=== PATIENT | female | born 1995 | race Caucasian/White ===

== ENCOUNTER → 2019-01-21 | Outpatient (CLI) | payer OTHER ==
[~2019-01-21] MED LIST: ACET-683 PO; IBUP80TA PO; PRENCHW PO; PRENTAB9 PO
--- NOTE | 2019-01-22 09:33 | REP ---
Left ankle series: Four views. History: Ankle injury. Findings: Four views of the left ankle demonstrate an intact ankle mortise. There is mild to moderate lateral swelling. No fracture is seen. There is an accessory ossicle adjacent to the lateral surface of the talus. This is well corticated and appears old. Impression: Lateral swelling at the ankle. No acute fracture. Electronically Signed by Robert Cruz MD 01/22/2019 07:29 P
== END ==
LOC: M RAD 21:08
PROVIDERS: ATTEND Physician Assistant Medical
DX: M25.472 Effusion, left ankle (principal); S99.912A Unspecified injury of left ankle, initial encounter; W19.XXXA Unspecified fall, initial encounter; Y92.9 Unspecified place or not applicable

== ENCOUNTER 2019-03-17 17:57 | Outpatient (CLI) | payer OTHER ==
[~2019-03-17] VITALS: Ht 172.7 cm; Wt 90.9 kg
[2019-03-17 18:11] VITALS: BP 120/76
[2019-03-17] MEDS ORDERED: PRENTAB9 PO (18:15)
[2019-03-17 20:26] VITALS: BP 137/87
--- NOTE | 2019-03-17 20:45 | IPNPDOC ---
Text Note Date of Service The patient was seen on 03/17/19. NOTE 23 yo at 40+4 weeks gestation presented to L&D with the complaint of decreased movement. She felt movement today, just not as much as usual. She denies any other concerns such as vaginal bleeding, leakage of fluid, or contractions. is uncomplicated. Chaperoned by L&D RN Vitals - VSS, afebrile, normotensive, non tachycardic General - AAOX3, sitting up in bed, NAD Abdomen - Gravid uterus, no fundal tenderess Cervix - 50/-3, membrane stripping performed per patient request. FHR tracing - NST reactive with multiple accels and no decels. Bedside TAUS ( anatomy not assessed) - Viable SIUP in cephalic presentation. JULIUS 8.2cm. BPP 8/8. status reassuring on monitoring with reactive NST and BPP 8/8. Ms. Wolfe felt significant movement while in triage and was reassured. Nevertheless, I did offer her IOL this evening given her presenting complaint. She is scheduled for IOL this Monday at 41 weeks. However, Ms. Wolfe strongly desires to go into labor naturally and have a natural delivery. We discussed all risks and benefits of IOL now vs waiting for another few days to potentially allow for spontaneous labor. This is what Ms. Wolfe preferred, and she declined IOL this evening. I did perform membrane stripping per her request. And I also set her up for an NST in the office tomorrow morning at 0800, per her request as well. She knows to return to care sooner for bleeding, contractions, leakage of fluid, decreased movement, or any other urgent concerns. All patient questions answered. DO LORI Perez,Smith, I+O VS, Smith, I+O Vital Signs Date Time Temp Pulse Resp B/P (MAP) Pulse Ox O2 Delivery O2 Flow Rate FiO2 03/17/19 18:11 99.5 95 18 120/76 (91) SAL ELIAS DO Mar 17, 2019 20:44
== END 2019-03-17 20:35 | disposition home or self-care (01) ==
LOC: M LDO 17:57 → M LDI 18:29 → UNDOADMIN 18:29 → M LDO 20:35 → UNDODISIN 20:35
PROVIDERS: ATTEND Obstetrics & Gynecology
DX: O36.8130 Decreased fetal movements, third trimester, not applicable or unspecified (principal); O48.0 Post-term pregnancy; Z3A.40 40 weeks gestation of pregnancy
CPT/HCPCS: 59025; 76815; G0378; G0463

== ENCOUNTER 2019-03-18 23:29 | Outpatient (CLI) | payer OTHER ==
[~2019-03-18] VITALS: Ht 172.7 cm; Wt 91.4 kg
[~2019-03-18 23:29] MED LIST changes: -ACET-683 PO; -IBUP80TA PO; -PRENCHW PO
--- NOTE | 2019-03-19 00:38 | IPNPDOC ---
Text Note Date of Service The patient was seen on 03/19/19. NOTE patient is a 23 yo G1 @ 40+5wks gestation presents to L&D with concern for having bloody discharge. she reports mild contractions. denies LOF. +FM. vitals: normal NAD abd: gravid, soft, nt FHT: 115/mod james/pos accel/no decel toco: ctx q 4mins ce: 3/75/-1, membrane sweep, no blood noted on exam. a/p patient is @ 40+5wks, in latent labor. Discussed option of admission for IOL vs . recheck when she has more uncomfortable contractions in 2hrs. patient opted to go home and come back when she has stronger contractions. discussed return precautions. DO BEVERLEY Man LUAT N. DO Mar 19, 2019 00:38
== END 2019-03-19 00:45 | disposition home or self-care (01) ==
LOC: M LDO 23:29
PROVIDERS: ATTEND Obstetrics & Gynecology
DX: O47.1 False labor at or after 37 completed weeks of gestation (principal); Z3A.40 40 weeks gestation of pregnancy
CPT/HCPCS: 59025; G0378; G0463

== ENCOUNTER 2019-03-20 12:19 | Inpatient (IN) | payer OTHER ==
[~2019-03-20] VITALS: Ht 172.7 cm; Wt 81.0 kg
[2019-03-20] VITALS (18 sets, daily range): BP systolic 113–148; BP diastolic 58–92
[2019-03-20] MEDS ORDERED: LACTATED RINGER'S 1000 ML IV STA (13:47)
[2019-03-20] MEDS ORDERED: miSOPROStol 50 MCG 1/2 TAB (S0191) PO ONE (14:00)
--- NOTE | 2019-03-20 14:15 | HPEPDOC ---
Obstetrical History & Physical General Date of Admission Mar 20, 2019 at 12:19 History of Present Illness 23yo at 41wks, EDC of 13MAR2019 by LMP and 1st Trimester US, presents to LND for post-dates induction of labor. Pt reports +FM and irregular contractions, some bloody show; denies LOF. Ms. Wolfe is A Positive, GBS negative. Her is complicated by excessive weight gain of 46lbs. She has no significant medical history; surgical history of wisdom teeth extraction. Chief Complaint: Induction of labor Information Provided By: Patient Care Care: Good Care Number of Visits: 10 Dating Final EDC: Mar 13, 2019 Final EDC for Daily Update: Mar 13, 2019 Final EDC by: LMP, 1st trimester (US) LMP: Jun 06, 2018 Antepartum Course Diagnos(e)s Post dates ; excessive weight gain. Height (inches): 68 Pre- weight (lbs.): 150 Admission Weight (lbs.): 196 Change in Weight (lbs.): 46 Past Medical History Past Obstetrical History : Past Obstetrical History: [employer] History: No pertinent history Past Medical History Medical History Denies Surgical History: [place] teeth Family History Significant Family History: No pertinent family hx Social History Marital Status: Family situation: Spouse/partner home Psychosocial History: No pertinent psych hx * Smoker: non-smoker Alcohol: Denies Imunizations Tdap status: current Allergies Coded Allergies: lactose (Verified Allergy, Unknown, 03/17/19) Medications Scheduled No.137/Iron/Folic Acd ( Vitamin Tablet) 1 Each Tablet, 1 TAB PO DAILY Physical Examination Physical Examination GENERAL: Alert and oriented times three. BREAST: . ABDOMEN: Gravid and non-tender to touch. FETUS: Is vertex by sterile vaginal examination; EFW 3400g. HEART RATE: Regular rate. LUNGS: Nonlabored breathing. EXTREMITIES: No edema visible. Other physical findings VE at 1340, chaperoned by RN James: 3/75/-2, soft, BBOW, membranes swept FHR 125, moderate variability, + accels, no decels noted CTX: irregular Laboratory Data 24H LABS Laboratory Tests 2 03/20/19 12:30: Serology Scanned Report Hepatitis B Testing Pertinent Laboratoy Data Blood Type: A+ RBC Antibody Screen: Negative HIV: Negative Hepatitis B: Positive Rapid Plasma Reagin: Nonreactive Rubella: Immune Varicella: Immune Chlamydia/Gonorrhea: Negative Group B Streptococcus: Negative Quad Screen Test: Negative Anatomy Ultrasound Ultrasound Date: October 24, 2018 Placenta Location: Posterior Normal Anatomy: Yes (spine evaluation is incomplete with nonvisualiation of the sacral spine seconary to position) Placenta Previa: No Other Ultrasounds Repeat US on [id number]: Placenta anterior and right lateral in position; no previa; spine evaluation WNL. Steroid Therapy Steroid Therapy: No Assessment/Plan Assessment Ms. Wolfe is 23yo at 41wks who is admitted for post dates induction of labor. GBS Negative, A Positive blood type; Category I FHT Plan Admit to LND, consented for induction, labor, and delivery. IV start, Admission labs collected IV and PO hydration Plan to start IOL with buccal cytotec CEFM x2 per protocol Can walk after 1 hour of monitoring Reassess in 4 hours or sooner PRN Anticipate Consult with OB if indicated ELENA BENNETT CNM Mar 20, 2019 14:15
[2019-03-20 14:24] LABS: HEMATOCRIT 38.3 % (36.0-47.0); HEMOGLOBIN 13.1 g/dl (12.0-15.5); MEAN CORPUSCULAR HEMOGLOBIN 30.9 pg (27.0-33.0); MEAN CORPUSCULAR HGB CONC 34.2 g/dl (32.0-36.5); MEAN CORPUSCULAR VOLUME 90.3 fl (80.0-96.0); PLATELET COUNT, AUTOMATED 212 10^3/uL (150-450); RED BLOOD COUNT 4.24 10^6/uL (4.00-5.40); WHITE BLOOD COUNT 10.9 10^3/uL (4.0-10.0)
[2019-03-20] MEDS ORDERED: LR 1,000 ML IV SCH (17:55)
[2019-03-20] MEDS ORDERED: OXYTOCIN DRIP 30 UNITS in IV 1 EA IV SCH (18:00)
--- NOTE | 2019-03-20 18:00 | IPNPDOC ---
Obstetrical Progress Note Date of Service Mar 20, 2019 Subjective 23yo at 41wk undergoing IOL for post dates. Pt now s/p cytotec #1 and feeling contractions, reporting them becoming more painful. Objective O: VSS FHR 125, moderate variability, + Accels, no decels CTX q 2-5 minutes VE Deferred at this time Vital Signs Date Time Temp Pulse Resp B/P (MAP) Pulse Ox O2 Delivery O2 Flow Rate FiO2 03/20/19 17:22 98.1 88 18 115/66 (82) Assessment and Plan Status: Reassuring Group B Streptococcus: Negative Anticipate: Vaginal Delivery Additional Comments A: PDIOL, entering into labor, Category I FHT P: Pt may eat and shower Start pitocin per low dose protocol two hours after she eats Can have epidural when ready CEFM x2 PO and IV hydration Anticipate Consult with OB as indicated ELENA BENNETT CNM Mar 20, 2019 18:00
[2019-03-20] MEDS ORDERED: FENTANYL 2MCG/ML ROPIVACAINE 0.2% IN 0.9% NACL 100ML IVBAG As Ordered ONE (22:26)
[2019-03-20] MEDS ORDERED: FENTANYL/ROPIVACAINE/NACL BAG 100 ML EPIDURAL SCH (23:45)
[2019-03-20] MEDS ORDERED: EPIDURAL COMMENT XX SCH (23:45)
[2019-03-20] MEDS ORDERED: ePHEDrine SULFATE 25 MG/5 ML(5MG/ML) SYRINGE IV PRN (23:45)
[2019-03-20] MEDS ORDERED: REFRIGERATOR IV KEYS XX PRN (23:45)
[2019-03-20] MEDS ORDERED: ONDANSETRON 4MG/2ML VIAL (J2405) IV PRN (23:45)
[2019-03-20] MEDS ORDERED: diphenhydrAMINE INJ 50MG/ML VIAL (J1200) IV PRN (23:45)
[2019-03-20] MEDS ORDERED: EPIDURAL/PCA KEYS XX PRN (23:45)
[2019-03-20] MEDS ORDERED: NALOXONE INJ 0.4 MG/1 ML VIAL (J2310) IV PRN (23:45)
[2019-03-21] VITALS (9 sets, daily range): BP systolic 103–142; BP diastolic 58–87
[2019-03-21] MEDS ORDERED: DIBUCAINE 1% OINTMENT 30GM TOP PRN (04:15)
[2019-03-21] MEDS ORDERED: IBUPROFEN 600 MG TAB PO PRN (04:15)
[2019-03-21] MEDS ORDERED: DOCUSATE SODIUM 100 MG CAP PO PRN (04:15)
[2019-03-21] MEDS ORDERED: ACETAMINOPHEN TAB 650MG DOSE (2X325MG) PO PRN (04:15)
[2019-03-21] MEDS ORDERED: MEASLES,MUMPS,RUBELLA VACCINE INJ (MMR-II) (90707) SC SCH (04:15)
[2019-03-21] MEDS ORDERED: METHYLERGONOVINE MALEATE 0.2 MG TAB PO PRN (04:15)
[2019-03-21] MEDS ORDERED: ACETAMINOPHEN 500 MG TAB PO PRN (04:15)
[2019-03-21] MEDS ORDERED: OXYTOCIN INJ 10 UNITS/ML VIAL (J2590) IV ONE (04:15)
[2019-03-21] MEDS ORDERED: RHOGAM 300 MCG (1500 IU) INJ (J2790) IM SCH (04:15)
[2019-03-21] MEDS ORDERED: OXYTOCIN DRIP 30 UNITS in IV 1 EA IV ONE (04:15)
[2019-03-21] MEDS ORDERED: MOM 30ML SUSPENSION UDC PO PRN (04:15)
[2019-03-21 04:19] LABS: CORD GAS ABE V -6.6; CORD GAS HCO3 V 17.7 MEQ/L; CORD GAS O2 SAT V 71.8 %; CORD GAS PCO2 V 32.5 mmHg; CORD GAS PH V 7.353 UNITS; CORD GAS PO2 V 31.7 mmHg; CORD GAS SBC V 18.6 MEQ/L; CORD GAS TCO2 V 18.7 MEQ/L
[2019-03-21 04:20] LABS: CORD GAS ABE A -5.1; CORD GAS HCO3 A 22.6 MEQ/L; CORD GAS O2 SAT A 31.7 %; CORD GAS PCO2 A 52.1 mmHg; CORD GAS PH A 7.256 UNITS; CORD GAS PO2 A 17.3 mmHg; CORD GAS SBC A 18.7 MEQ/L; CORD GAS TCO2 A 24.2 MEQ/L
--- NOTE | 2019-03-21 07:08 | IPN ---
DATE: 03/20/2019 This lady is a 23-year-old 1, para 0 at 41 weeks of gestation admitted for induction of labor. Her care was uneventful. She does not have any significant issues in her history. She is Group B Streptococcus (GBS) negative and was started buccal Cytotec followed up by Pitocin. On evaluation pre epidural, she was found to be 4 cm, bulging membranes, -3 station. Contractions were moderate. Category 1 strip and the Pitocin had been started 2 hours ago. The patient is requesting an epidural, safe to proceed.
--- NOTE | 2019-03-21 07:10 | IPN ---
DATE: 03/21/2019 This lady has an epidural in place. Has category 1 strip. On 4 milliunits of Pitocin still on examination is 4 cm, anterior, bulging membranes, 75% effaced -3 station. Our plan was to do an ARM, which was done, draining clear liqua, vertex OT to the right. Category 1 strip. Blood pressures are stabilizing 123/74, respirations 16, pulse 77, temperature 98.2. Our plan is to increase Pitocin to maximize her contractions and anticipate vaginal delivery. Safe to proceed.
[2019-03-21] MEDS: PRENATAL VITAMINS CHEWABLE TABLET PO SCH (07:55)
--- NOTE | 2019-03-21 11:38 | DN ---
DATE: 03/21/2019 This lady is a 23 old 1 now para 1 who was admitted for induction of labor at 41 weeks gestation. She had an epidural in place. Had a spontaneous vaginal delivery of female infant 8 pounds 11 ounces 3950 grams of 9 and 9 at one and five minutes respectively. Arterial and venous pH were performed. The arterial pH was 7.25, base excess -5.1, venous pH 7.35, base excess -6.6. We also did cord blood bank banking for the patient and filled out the appropriate indicated forms. She had a spontaneous midline vaginal tear. Perineum was intact. We repaired the spontaneous midline vaginal tear with #2-0 Vicryl on J339. The anterior and posterior lateral welch were intact. Sphincter was tight. Uterus contracted well down on Pitocin. The patient and baby tolerating procedure well.
[2019-03-21] MEDS: IBUPROFEN 800 MG TAB PO PRN (16:45)
[2019-03-22] MEDS: IBUPROFEN 800 MG TAB PO PRN ×2 (02:10→17:39)
[2019-03-22 06:00] VITALS: BP 112/70
--- NOTE | 2019-03-22 06:19 | IPNPDOC ---
Text Note Date of Service The patient was seen on 03/22/19. NOTE patient is a 23 you S/P ppd #1. Today without concerns. She did have increased vaginal bleeding, resolved with fundal massage and one dose of methergine PO. report lochia like a period. she is ambulating, urinating, tolerating po without problem. She is breast feeding. plans on using natural family planning for control. vitals: normal nad abd: soft, nt, fundus @ u-2 le: no edema/tenderness a/p ppd #1, doing well. contraceptive counseling. discharge planning. medication placed at ft. drum for pickup. anticipate d/c when baby discharge. Le, DO VS,Smith, I+O VS, Fishbone, I+O Vital Signs Date Time Temp Pulse Resp B/P (MAP) Pulse Ox O2 Delivery O2 Flow Rate FiO2 03/22/19 06:00 97.7 68 20 112/70 (84) 98 I&O- Last 24 Hours up to 6 AM 03/22/19 06:00 Output Total 400 ml Balance -400 ml DHEERAJ LOWERY DO Mar 22, 2019 06:19
[2019-03-22 07:34] LABS: MEAN CORPUSCULAR HEMOGLOBIN 30.6 pg (27.0-33.0); MEAN CORPUSCULAR HGB CONC 33.4 g/dl (32.0-36.5); MEAN CORPUSCULAR VOLUME 91.4 fl (80.0-96.0); PLATELET COUNT, AUTOMATED 184 10^3/uL (150-450)
[2019-03-22 07:41] LABS: HEMOGLOBIN 10.7 g/dl (12.0-15.5)
[2019-03-22] MEDS: PRENATAL VITAMINS CHEWABLE TABLET PO SCH (08:39)
[2019-03-22 17:57] VITALS: BP 130/85
[2019-03-23 05:28] VITALS: BP 115/70
[2019-03-23] MEDS: PRENATAL VITAMINS CHEWABLE TABLET PO SCH (07:58)
--- NOTE | 2019-03-23 10:44 | IPNPDOC ---
Text Note Date of Service The patient was seen on 03/23/19. NOTE Ob Considerations: Excessive Wt gain 23y/o G1 PPD#2 s/p at 41+1 wks following induction for pending post dates. Today, patient is doing well and without complaints. She is voiding and ambulating without difficulty, tolerating regular diet and lochia is diminishing. She is breast feeding without difficulty. She desires natural family planning for contraception. PE: VS reviewed. No mild range BPs in last 24 hours. Non tachycardic, normotensive Gen: alert and oriented, no acute distress Resp: Non labored breathing CV: Well perfused Abd: Soft, NT, ND. U-2 Ext: No edema, erythema or calf tenderness A/p: 23y/o G1 PPD#2 s/p @ 41+1 wks, recovering well -Encourage ambulation, hydration, breast feeding -Apos, rubella immune -Motrin and Tyenol for pain control -Contraception: Desires natural family planning, counseled on risks of close interval -Anticipate discharge today -F/u visit at 6 weeks VS,Smith, I+O VS, Smith, I+O Vital Signs Date Time Temp Pulse Resp B/P (MAP) Pulse Ox O2 Delivery O2 Flow Rate FiO2 03/23/19 05:28 99.2 68 16 115/70 (85) 03/22/19 06:00 98 Nadine Champion MD Mar 23, 2019 10:44
--- NOTE | 2019-03-23 10:55 | OBDS ---
[facility] Obstetrical Discharge Sum. 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 Wolfe was admitted for induction of labor at 41+0 wks for pending post dates on 21Mar2019. Delivery Uncomplicated @ 41+1 wks of 8by51pr 3950g female infant, Apgars 9/9. Midline vaginal laceration. Sex: Female Anesthesia: Regional Anesthesia Episiotomy None A/P, Post Course List any complications Admission diagnosis: Pending Post Dates Discharge diagnosis: Live martinez Condition at Discharge: Stable Discharge Instructions: Home Activity: As tolerated. Pelvic rest x6 weeks. Diet: Regular Medications: Given to patient Follow-up: 6 week visit Other: Nadine Champion MD Mar 23, 2019 10:55
[2019-03-23] MEDS ORDERED: PRENCHW PO (10:57)
[2019-03-23] MEDS ORDERED: IBUP80TA PO (10:57)
[2019-03-23] MEDS ORDERED: ACET-683 PO (10:57)
== END 2019-03-23 14:22 | disposition home or self-care (01) | DRG 807 ==
LOC: M LDI 12:19 → M OBS 03-21 06:37
PROVIDERS: ADMIT Registered Nurse Maternal Newborn; ATTEND Obstetrics & Gynecology
PROC: 3E0P7GC Introduction of Other Therapeutic Substance into Female Reproductive, Via Natural or Artificial Opening (ICD-10-PCS; 2019-03-20)
PROC: 10E0XZZ Delivery of Products of Conception, External Approach (ICD-10-PCS; principal; 2019-03-21)
PROC: 10907ZC Drainage of Amniotic Fluid, Therapeutic from Products of Conception, Via Natural or Artificial Opening (ICD-10-PCS; 2019-03-21)
PROC: 0HQ9XZZ Repair Perineum Skin, External Approach (ICD-10-PCS; 2019-03-21)
DX: O48.0 Post-term pregnancy (principal); Z37.0 Single live birth; Z3A.41 41 weeks gestation of pregnancy; O70.0 First degree perineal laceration during delivery

== ENCOUNTER 2020-02-19 21:13 | Emergency (ER) | payer OTHER ==
[~2020-02-19] VITALS: Ht 175.3 cm; Wt 77.8 kg
[~2020-02-19 21:13] MED LIST changes: +ACET-683 PO; +IBUP80TA PO; +PRENCHW PO
[2020-02-19] MEDS ORDERED: MULTCAP PO (21:20)
[2020-02-19 23:15] LABS: BASO % 0.5 % (0.0-1.0); EOS # 0.1 10^3/uL (0.0-0.5); EOS % 1.5 % (0.0-3.0); HEMATOCRIT 41.9 % (36.0-47.0); HEMOGLOBIN 14.1 g/dl (12.0-15.5); LYMPH # 1.5 10^3/uL (1.5-5.0); LYMPH % 22.9 % (24.0-44.0); MEAN CORPUSCULAR HEMOGLOBIN 29.7 pg (27.0-33.0); MEAN CORPUSCULAR HGB CONC 33.7 g/dl (32.0-36.5); MEAN CORPUSCULAR VOLUME 88.2 fl (80.0-96.0); MONO # 0.6 10^3/uL (0.0-0.8); MONO % 8.5 % (0.0-5.0); NEUTROPHILS # 4.3 10^3/uL (1.5-8.5); NEUTROPHILS % 66.4 % (36.0-66.0); PLATELET COUNT, AUTOMATED 236 10^3/uL (150-450); RED BLOOD COUNT 4.75 10^6/uL (4.00-5.40); WHITE BLOOD COUNT 6.5 10^3/uL (4.0-10.0)
[2020-02-19] MEDS ORDERED: ONDANSETRON 4MG/2ML VIAL IV ONE (23:30)
[2020-02-19] MEDS ORDERED: NS 1,000 ML IV ONE (23:30)
[2020-02-19] MEDS ORDERED: ISOVUE-370 76% 100ML VIAL As Ordered ONE (23:33)
[2020-02-19 23:49] LABS: ALBUMIN 3.5 GM/DL (3.2-5.2); ALT/SGPT 18 U/L (12-78); BILIRUBIN,DIRECT < 0.1 MG/DL (0.0-0.2); BILIRUBIN,TOTAL 0.3 MG/DL (0.2-1.0); BLOOD UREA NITROGEN 9 MG/DL (7-18); CALCIUM LEVEL 8.5 MG/DL (8.5-10.1); CARBON DIOXIDE LEVEL 27 MEQ/L (21-32); CHLORIDE LEVEL 108 MEQ/L (98-107); CREATININE FOR GFR 0.62 MG/DL (0.55-1.30); GLOMERULAR FILTRATION RATE > 60.0 (>60); GLUCOSE, FASTING 86 MG/DL (70-100); LIPASE 98 U/L (73-393); POTASSIUM SERUM 3.9 MEQ/L (3.5-5.1); SODIUM LEVEL 140 MEQ/L (136-145)
--- NOTE | 2020-02-20 00:32 | REPVR ---
PROCEDURE INFORMATION: Exam: CT Abdomen And Pelvis With Contrast Exam date and time: 02/19/2020 11:29 PM Age: 24 years old Clinical indication: Abdominal pain; Epigastric; Additional info: Epigastric pain TECHNIQUE: Imaging protocol: Computed tomography of the abdomen and pelvis with intravenous contrast. Axial, coronal and sagittal reformatted images were created and reviewed. Radiation optimization: All CT scans at this facility use at least one of these dose optimization techniques: automated exposure control; mA and/or kV adjustment per patient size (includes targeted exams where dose is matched to clinical indication); or iterative reconstruction. Contrast material: ISO; Contrast volume: 100 ml; Contrast route: INTRAVENOUS (IV); COMPARISON: No relevant prior studies available. FINDINGS: Liver: Unremarkable. Gallbladder and bile ducts: No radiodense gallstones. No biliary ductal dilatation. Pancreas: Unremarkable. Spleen: Unremarkable. Adrenals: Unremarkable. Kidneys and ureters: No mass. No radiodense calculi. No hydronephrosis. Stomach and bowel: Multiple nondilated, fluid-filled, mildly hyperemic loops of small bowel, some of which appear mildly thickened and edematous in the right lower quadrant. No obstruction. No pneumatosis. Moderate amount of retained stool in the colon. Appendix: Normal. Intraperitoneal space: Trace nonspecific free pelvic fluid, likely physiologic and/or reactive. No organized fluid collection. No free air. Vasculature: Unremarkable. No aneurysm. Lymph nodes: Small mesenteric lymph nodes, likely reactive. No pathologically enlarged lymph nodes. Bladder: Unremarkable. Reproductive: Unremarkable. Bones/joints: No acute osseous abnormality. Soft tissues: Unremarkable. IMPRESSION: 1. Findings suggestive of mild nonspecific enteritis, as described above. 2. Additional findings, as above. Electronically signed by: Shun Branham On 02/20/2020 00:32:34 AM
[2020-02-20] MEDS ORDERED: REGL10TA6 PO (01:14)
[2020-02-20 01:24] VITALS: BP 116/77
== END 2020-02-20 01:25 | disposition home or self-care (01) ==
LOC: M ED 21:13
DX: K52.9 Noninfective gastroenteritis and colitis, unspecified (principal); Z91.011 Allergy to milk products
CPT/HCPCS: 74177; 80048; 80076; 81001; 83690; 84702; 85025; 96360; 96361; 99284; Q9967

== ENCOUNTER 2021-09-09 04:04 | Inpatient (IN) | payer OTHER ==
[~2021-09-09] VITALS: Ht 172.7 cm; Wt 96.0 kg
[2021-09-09] VITALS (30 sets, daily range): BP systolic 109–182; BP diastolic 57–105
[~2021-09-09 04:04] MED LIST changes: +MULTCAP PO; +REGL10TA6 PO
[2021-09-09] MEDS ORDERED: ACET500P3 PO (04:27)
[2021-09-09 04:51] LABS: HEMATOCRIT 38.3 % (36.0-47.0); HEMOGLOBIN 13.2 g/dl (12.0-15.5); MEAN CORPUSCULAR HEMOGLOBIN 30.2 pg (27.0-33.0); MEAN CORPUSCULAR HGB CONC 34.5 g/dl (32.0-36.5); MEAN CORPUSCULAR VOLUME 87.6 fl (80.0-96.0); PLATELET COUNT, AUTOMATED 188 10^3/uL (150-450); RED BLOOD COUNT 4.37 10^6/uL (4.00-5.40); WHITE BLOOD COUNT 13.8 10^3/uL (4.0-10.0)
[2021-09-09] MEDS ORDERED: LACTATED RINGER'S 1000 ML IV STA (04:57)
[2021-09-09] MEDS ORDERED: LR 1,000 ML IV SCH (05:00)
[2021-09-09] MEDS ORDERED: OXYTOCIN DRIP 30 UNITS in IV 1 EA IV PRN ×4 (05:00)
[2021-09-09] MEDS ORDERED: HOME MED LIST COMPLETE! XX SCH (05:20)
[2021-09-09] MEDS ORDERED: ONDANSETRON 4MG/2ML VIAL IV PRN (05:35)
[2021-09-09] MEDS ORDERED: NALOXONE INJ 0.4MG/1ML VIAL (J2310 PER 1MG) IV PRN (05:35)
[2021-09-09] MEDS ORDERED: FENTANYL/ROPIVACAINE/NACL BAG 100 ML EPIDURAL SCH (05:35)
[2021-09-09] MEDS ORDERED: REFRIGERATOR IV KEYS XX PRN (05:35)
[2021-09-09] MEDS ORDERED: FENTANYL 2MCG/ML ROPIVACAINE 0.2% IN 0.9% NACL 100ML IVBAG As Ordered ONE (05:35)
[2021-09-09] MEDS ORDERED: LACTATED RINGER'S 1000 ML IV PRN (05:35)
[2021-09-09] MEDS ORDERED: ePHEDrine SULFATE 25 MG/5 ML(5MG/ML) SYRINGE IV PRN (05:35)
[2021-09-09] MEDS ORDERED: diphenhydrAMINE 50MG/ML VIAL (J1200) IV PRN (05:35)
[2021-09-09] MEDS ORDERED: EPIDURAL COMMENT XX SCH (05:35)
[2021-09-09] MEDS ORDERED: EPIDURAL/PCA KEYS XX PRN (05:35)
[2021-09-09] MEDS ORDERED: METHYLERGONOVINE MALEATE 0.2 MG TAB PO PRN (11:15)
[2021-09-09] MEDS ORDERED: IBUPROFEN 600MG TAB PO PRN (11:15)
[2021-09-09] MEDS ORDERED: DIBUCAINE 1% OINTMENT 30GM TOP PRN (11:15)
[2021-09-09] MEDS ORDERED: DOCUSATE SODIUM 100MG CAPSULE PO PRN (11:15)
[2021-09-09] MEDS ORDERED: ACETAMINOPHEN TAB 650MG DOSE (2X325MG) PO PRN (11:15)
[2021-09-09] MEDS ORDERED: OXYTOCIN DRIP 30 UNITS in IV 1 EA IV SCH ×4 (11:15)
[2021-09-09] MEDS: IBUPROFEN 800 MG TAB PO PRN (19:40)
[2021-09-09] MEDS: ACETAMINOPHEN 500 MG TAB PO PRN (22:54)
[2021-09-10] MEDS: IBUPROFEN 800 MG TAB PO PRN ×2 (04:39→16:05)
[2021-09-10 06:00] VITALS: BP 109/75
[2021-09-10] MEDS: ACETAMINOPHEN 500 MG TAB PO PRN ×2 (07:57→17:22)
[2021-09-10] MEDS ORDERED: PRENATAL VITAMINS CHEWABLE TABLET PO SCH (09:00)
== END 2021-09-10 17:50 | disposition home or self-care (01) | DRG 807 ==
LOC: M LDO 04:04 → M LDI 04:22 → M OBS 12:40
PROVIDERS: ADMIT Obstetrics & Gynecology; ATTEND Advanced Practice Midwife
PROC: 10E0XZZ Delivery of Products of Conception, External Approach (ICD-10-PCS; principal; 2021-09-09)
PROC: 0HQ9XZZ Repair Perineum Skin, External Approach (ICD-10-PCS; 2021-09-09)
PROC: 10907ZC Drainage of Amniotic Fluid, Therapeutic from Products of Conception, Via Natural or Artificial Opening (ICD-10-PCS; 2021-09-09)
DX: O70.0 First degree perineal laceration during delivery (principal); Z37.0 Single live birth; Z3A.40 40 weeks gestation of pregnancy